=== PATIENT | female | born 1935 | race Hispanic/Latino ===

== ENCOUNTER 2017-02-23 10:22 | Outpatient (CLI) | payer MEDICARE, OTHER | END 2017-02-23 10:23 | disposition home or self-care (01) | LOC: LABHHL 10:22 | PROVIDERS: ATTEND Internal Medicine | DX: I10 Essential (primary) hypertension (principal); E78.00 Pure hypercholesterolemia, unspecified; Z79.899 Other long term (current) drug therapy | CPT/HCPCS: 36415; 80061; 83036 ==